=== PATIENT | male | born 1975 | race Caucasian/White ===

== ENCOUNTER 2020-08-18 14:47 | Outpatient (CLI) | payer BC, SELFPAY | END 2020-08-18 14:48 | disposition home or self-care (01) | LOC: ANHCOVIDVC 14:47 | PROVIDERS: PCP Family Medicine | DX: Z23 Encounter for immunization (principal) | CPT/HCPCS: 0001A; 91300 ==

== ENCOUNTER 2020-09-08 14:47 | Outpatient (CLI) | payer BC, SELFPAY | END 2020-09-08 14:48 | disposition home or self-care (01) | LOC: ANHCOVIDVC 14:47 | PROVIDERS: PCP Family Medicine | DX: Z23 Encounter for immunization (principal) | CPT/HCPCS: 0002A; 91300 ==

== ENCOUNTER 2020-09-27 15:13 | Emergency (ER) | payer BC, SELFPAY ==
--- NOTE | ~2020-09-27 | CT_ITS ---
EXAMINATION: CT abdomen pelvis wo con DATE: 09/27/2020 16:01 INDICATION: Right flank pain TECHNIQUE: Computed tomography (CT) of the abdomen and pelvis was performed without intravenous contr ast. The dose-length product (DLP) was 601.41 mGy-cm. Automated exposure control and iterative recons truction technique were employed. COMPARISON: None FINDINGS: Minimal dependent atelectasis is present in the lung bases. The heart size is normal. There is a small sliding hiatal hernia. There is focal fatty infiltration of the liver adjacent to the lig amentum teres. The spleen, pancreas, gallbladder, and adrenal glands are normal. There is a 3 mm ston e at the right ureterovesicular junction which causes moderate right hydroureteronephrosis. There are nonobstructing stones of the left kidney measuring up to 3 mm. No pathologically enlarged abdominal or pelvic lymph nodes are identified. There is no free intraperitoneal gas or evidence of bowel obstr uction. There is a fat-containing umbilical hernia. S-shaped curvature of the thoracolumbar spine is noted. IMPRESSION: 1. 3 mm stone at the right ureterovesicular junction causing moderate right hydroureteronephrosis. Co nsider KUB for treatment planning purposes. 2. Nonobstructing left nephrolithiasis. Reviewed, dictated and finalized at location B. IMPRESSION: 1. 3 mm stone at the right ureterovesicular junction causing moderate right hyd roureteronephrosis. Consider KUB for treatment planning purposes. 2. Nonobstructing left nephrolithiasis.
--- NOTE | ~2020-09-27 | XR_ITS ---
EXAMINATION: XR abdomen/kub 1V INDICATION: Right flank pain, ureterolithiasis TECHNIQUE: Supine views of the abdomen were obtained on 2 radiographs. COMPARISON: CT from today FINDINGS: The known right ureterovesicular junction stone is not well demonstrated. The bowel gas pat tern is normal. There is mild osteoarthritis of the hips. IMPRESSION: 1. Known right ureterovesicular junction stone not definitely identified. Reviewed, dictated and finalized at location B.
[2020-09-27 15:20] VITALS: BP 160/112; RESP 18; TEMP 36.8; O2SAT 100
[2020-09-27 15:36] LABS: Basophils Percent Auto 0.1 % (0.2-1.2); Eosinophils Absolute Auto 0.3 K/mm3 (0-0.3); Eosinophils Percent Auto 3.1 % (0-4.4); Hematocrit 49.3 % (42.0-52.0); Hemoglobin 16.7 g/dL (14.0-18.0); Immature Granulocyte Absolute 0.04 K/mm3 (0.00-0.031); Immature Granulocyte Percent A 0.4 % (0-0.5); Lymphocytes Absolute Auto 2.85 K/mm3 (0.9-3.2); Lymphocytes Percent Auto 26.4 % (18.3-44.2); Mean Corpuscular HGB Conc 33.9 g/dl (32-36); Mean Corpuscular Hemoglobin 28.4 pg (26-34); Mean Corpuscular Volume 83.8 fl (80-100); Mean Platelet Volume 10.9 fl (7.4-10.4); Monocytes Absolute Auto 0.9 K/mm3 (0.1-0.6); Neutrophils Absolute Auto 6.7 K/mm3 (1.3-6.7); Platelet Count Result 327 k/mm3 (150-375); Red Blood Count 5.88 M/mm3 (4.6-6.20); Red Cell Distribution Width 12.6 % (11.5-14.5); White Blood Count 10.8 K/mm3 (4.5-10.0)
[2020-09-27 15:43] LABS: Add Urine Microscopic? YES; Appearance Urine Cloudy (Clear); Bacteria Urine Trace /hpf; Bilirubin Urine Negative (Negative); Blood Urine 3+ (Negative); Color Urine Yellow (Yellow); Glucose Urine UA Negative (Negative); Ketones Urine Negative (Negative); Leukocyte Esterase Ur Negative LEU/UL (Negative); Mucus Urine Rare /lpf; Nitrate Urine Negative (Negative); Protein Urine 2+ mg/dL (Negative); RBC Urine >75 /hpf (0-2); Specific Grav Ur 1.018 (1.001-1.035); Urobilinogen Urine Negative mg/dL (<2.0); WBC Urine 0-3 /hpf
[2020-09-27 15:46] LABS: Anion Gap 7 mmol/L (8-16); Blood Urea Nitrogen 13 mg/dL (9-20); Calcium 9.1 mg/dL (8.4-10.2); Carbon Dioxide 31 mmol/L (22-30); Chloride 101 mmol/L (98-107); Estimated CRCL calculation 74 ml/min; Estimated Glomerular Filt Rate > 60; Glucose 123 mg/dL (75-110); Potassium 3.5 mmol/L (3.4-5.0); Sodium 139 mmol/L (137-145)
--- NOTE | 2020-09-27 16:11 | ED.GENADULT ---
HPI - General Adult General Chief complaint: Back Pain/Injury Stated complaint: right flank pain Time Seen by Provider: 09/27/20 16:04 History of Present Illness HPI narrative: Patient is a 45-year-old male who presents ER with sudden onset right-sided flank pain. No radiation. Feels like he has to urinate constantly but cannot go. Associate with nausea and vomiting as well as some sweats. Has not had a kidney stone before. No hematuria or dysuria. No known injury to the back. Pain is not aggravated by movement. He is found no alleviating factors. Related Data Allergies Allergy/AdvReac Type Severity Reaction Status Date / Time aspirin Allergy Unknown Skin Verified 09/27/20 16:26 Reaction Penicillins Allergy Unknown Skin Verified 09/27/20 16:26 Reaction shellfish derived Allergy Unknown Hives Verified 09/27/20 16:26 shrimp Allergy Unknown Skin Verified 09/27/20 16:26 Reaction Review of Systems Review of Systems: All systems reviewed & are unremarkable except as noted in HPI and below Constitutional: Constitutional: Denies chills, Denies fever(s) and Denies weakness Gastrointestinal: Gastrointestinal: Denies abdominal pain, Denies diarrhea, Reports nausea and Reports vomiting Genitourinary: Genitourinary: Denies hematuria, Denies dysuria, Reports urinary frequency and Denies urinary incontinence Musculoskeletal: Musculoskeletal: Reports back pain and Denies muscle cramps PMFSH Past Medical History Medical History (Updated 09/27/20 @ 17:31 by Jackson Javed MD) Asthma GERD (gastroesophageal reflux disease) Surgical History Surgical History (Updated 09/27/20 @ 17:31 by Jackson Javed MD) H/O vasectomy Social History Social History Smoking status: Current every day smoker Second hand tobacco smoke exposure: No Alcohol intake: current Gender identity (if verbalized by the patient): Male Exam Narrative: Exam Narrative: GENERAL: Uncomfortable-appearing, well-nourished, and in mild distress. HEAD: Normocephalic, atraumatic. ENT: Mucous membranes moist. CHEST: Clear to auscultation. No respiratory distress. HEART: Regular rate and rhythm. Normal peripheral pulses. ABDOMEN: Soft, nontender, nondistended. Back: No CVA tenderness. No midline tenderness of the thoracic or lumbar spine. No reproducible paraspinal muscular tenderness. EXTREMITIES: Normal range of motion. No edema. NEURO: Alert and oriented x3. PSYCH: Normal mood and affect. Course Course Emergency Course: Discussed diagnosis and treatment plan. Patient verbalized understanding. Feeling improved with Toradol but will give additional pain medication prior to discharge. Vital Signs Vital signs: Vital Signs Temperature 98.2 F 09/27/20 15:20 Respiratory Rate 18 09/27/20 15:20 Blood Pressure 160/112 H 09/27/20 15:20 Pulse Oximetry 100 09/27/20 15:20 Temperature 98 F 09/27/20 16:20 Pulse Rate 58 L 09/27/20 16:20 Respiratory Rate 26 H 09/27/20 16:20 Blood Pressure 142/78 H 09/27/20 16:20 Pulse Oximetry 100 09/27/20 16:20 Medical Decision Making Vital Signs Vital Signs: Vital Signs Temperature 98.2 F 09/27/20 15:20 Respiratory Rate 18 09/27/20 15:20 Blood Pressure 160/112 H 09/27/20 15:20 Pulse Oximetry 100 09/27/20 15:20 Temperature 98 F 09/27/20 16:20 Pulse Rate 58 L 09/27/20 16:20 Respiratory Rate 26 H 09/27/20 16:20 Blood Pressure 142/78 H 09/27/20 16:20 Pulse Oximetry 100 09/27/20 16:20 Lab Data Result diagrams: 09/27/20 15:25 09/27/20 15:25 Labs: Lab Results 09/27/20 09/27/20 09/27/20 Range/Units 15:25 15:25 15:25 WBC 10.8 H (4.5-10.0) K/mm3 RBC 5.88 (4.6-6.20) M/mm3 Hgb 16.7 (14.0-18.0) g/dL Hct 49.3 (42.0-52.0) % MCV 83.8 (80-100) fl MCH 28.4 (26-34) pg MCHC 33.9 (32-36) g/dl RDW 12.6 (11.5-14.5) % Plt Count 327 (150-375) k/mm3 MPV 10.9 H (7.4-
[2020-09-27 16:20] VITALS: BP 142/78; PULSE 58; RESP 26; TEMP 36.6; O2SAT 100
[2020-09-27] MEDS: SODIUM CHLORIDE 0.9% IV 1,000 ML 999 ML IV CONT (16:25)
[2020-09-27] MEDS: KETOROLAC 30 MG/ML VIAL (*BKC) IV PUSH (16:28)
[2020-09-27] MEDS: ONDANSETRON INJ 4 MG/2 ML VIAL IV PUSH (16:30)
[2020-09-27] MEDS: MORPHINE SULFATE (*CRX) 4 MG/ML INJ IV PUSH (17:35)
== END 2020-09-27 18:41 | disposition home or self-care (01) ==
PROVIDERS: Emergency Provider Emergency Medicine; PCP Family Medicine
DX: N13.2 Hydronephrosis with renal and ureteral calculous obstruction (principal); J45.909 Unspecified asthma, uncomplicated; K21.9 Gastro-esophageal reflux disease without esophagitis; F17.210 Nicotine dependence, cigarettes, uncomplicated
CPT/HCPCS: 36415; 74018; 74176; 80048; 81001; 85025; 96361; 96374; 96375; 99284; J1885; J2270; J2405; J7030

== ENCOUNTER 2022-10-09 08:18 | Outpatient (CLI) | payer BC, SELFPAY ==
[2022-10-09 20:15] LABS: Alanine Aminotransferase 52 U/L (6-50); Albumin Level 4.5 g/dL (3.5-5.1); Alkaline Phosphatase 47 U/L (38-126); Anion Gap 5 mmol/L (8-16); Aspartate Amino Transferase 36 U/L (17-59); Bilirubin,Total 1.1 mg/dL (0.2-1.3); Blood Urea Nitrogen 11 mg/dL (9-20); Calcium 9.2 mg/dL (8.4-10.2); Carbon Dioxide 34 mmol/L (22-30); Chloride 99 mmol/L (98-107); Cholesterol 183 mg/dL (0-200); Estimated Glomerular Filt Rate > 60; Glucose 107 mg/dL (65-110); HDL Direct 31 mg/dL; Potassium 4.3 mmol/L (3.4-5.0); Sodium 138 mmol/L (137-145); Triglycerides 149 mg/dL (<150)
[2022-10-09 20:29] LABS: LDL Cholesterol Direct 113 mg/dL
[2022-10-09 21:11] LABS: Hemoglobin A1C 5.5 % (<5.7)
== END 2022-10-09 08:19 | disposition home or self-care (01) ==
LOC: ANHGOSHLAB 08:21
PROVIDERS: PCP Family Medicine; Visit Provider Family Medicine
DX: R73.01 Impaired fasting glucose (principal); I10 Essential (primary) hypertension; Z13.220 Encounter for screening for lipoid disorders
CPT/HCPCS: 36415; 80053; 80061; 83036

== ENCOUNTER 2023-09-24 08:19 | Outpatient (CLI) | payer BC, SELFPAY ==
[2023-09-24 20:02] LABS: Alanine Aminotransferase 29 U/L (6-50); Albumin Level 4.7 g/dL (3.5-5.1); Alkaline Phosphatase 56 U/L (38-126); Anion Gap 10 mmol/L (4-12); Aspartate Amino Transferase 39 U/L (17-59); Bilirubin,Total 0.8 mg/dL (0.2-1.3); Blood Urea Nitrogen 12 mg/dL (9-20); Calcium 9.4 mg/dL (8.4-10.2); Carbon Dioxide 25 mmol/L (22-30); Chloride 105 mmol/L (98-107); Cholesterol 172 mg/dL (0-200); Estimated Glomerular Filt Rate > 60; Glucose 99 mg/dL (65-110); HDL Direct 42 mg/dL; Potassium 3.5 mmol/L (3.4-5.0); Sodium 140 mmol/L (137-145); Triglycerides 106 mg/dL (<150)
[2023-09-24 20:13] LABS: LDL Cholesterol Direct 106 mg/dL
== END 2023-09-24 08:20 | disposition home or self-care (01) ==
LOC: ANHGOSHLAB 08:21
PROVIDERS: PCP Family Medicine; Visit Provider Family Medicine
DX: Z13.220 Encounter for screening for lipoid disorders (principal); Z13.228 Encounter for screening for other metabolic disorders
CPT/HCPCS: 36415; 80053; 80061

== ENCOUNTER 2024-08-19 08:15 | Outpatient (CLI) | payer BC, SELFPAY ==
--- OUTSIDE RECORDS SUMMARY | 2024-08-19 08:25 | XMS_ITS | Clinical Summary ---
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 Gender Identity Not on file Sexual Orientation Not on file Plan of Treatment Health Maintenance Due Date Last Done Comments Hepatitis C Virus (HCV) Screening 1975 TdaP Immunization 1975 Hepatitis B Immunization (1 of 3 - 19+ 3-dose series) 1994 Colonoscopy 2020 Colorectal Cancer Screening 2020 Influenza Immunization (#1) 2024 092 10/2019, 03/17/2018 SARS-COV-2 Immunization ( season) 2024 05/31/2021, 09/08/2020, 08/18/2020 Respiratory Syncytial Virus (RSV) Immunization (Adult) (1 - 1-dose 75+ series) 2050 DTaP/Tdap/Td Immunization Discontinued 12/13/2020 Meningococcal Immunization (ACWY) Aged Out No longer eligible based on patient's age to complete this topic Pneumococcal Immunization Combined Aged Out No longer eligible based on patient's age to complete this topic Rotavirus Immunization Aged Out No lo nger eligible based on patient's age to complete this topic
[2024-08-19 13:00] LABS: Basophils Percent Auto 0.1 % (0.2-1.2); Eosinophils Absolute Auto 0.2 K/mm3 (0-0.3); Eosinophils Percent Auto 3.2 % (0-4.4); Hematocrit 49.3 % (42.0-52.0); Hemoglobin 16.3 g/dL (14.0-18.0); Immature Granulocyte Absolute 0.03 K/mm3 (0.00-0.031); Immature Granulocyte Percent A 0.4 % (0-0.5); Lymphocytes Absolute Auto 1.76 K/mm3 (0.9-3.2); Lymphocytes Percent Auto 23.2 % (18.3-44.2); Mean Corpuscular HGB Conc 33.1 g/dl (32-36); Mean Corpuscular Hemoglobin 29.2 pg (26-34); Mean Corpuscular Volume 88.4 fl (80-100); Mean Platelet Volume 11.7 fl (7.4-10.4); Monocytes Absolute Auto 0.6 K/mm3 (0.1-0.6); Monocytes Percent Auto 8.2 % (2.6-8.5); Neutrophils Absolute Auto 4.9 K/mm3 (1.3-6.7); Neutrophils Percent Auto 64.9 % (45.5-73.1); Platelet Count Result 246 k/mm3 (150-375); Red Blood Count 5.58 M/mm3 (4.6-6.20); Red Cell Distribution Width 13.2 % (11.5-14.5); White Blood Count 7.6 K/mm3 (4.5-10.0)
[2024-08-19 13:07] LABS: Alanine Aminotransferase 32 U/L (6-50); Albumin Level 4.3 g/dL (3.5-5.1); Alkaline Phosphatase 51 U/L (38-126); Anion Gap 7 mmol/L (4-12); Aspartate Amino Transferase 53 U/L (17-59); Bilirubin,Total 0.7 mg/dL (0.2-1.3); Blood Urea Nitrogen 18 mg/dL (9-20); Carbon Dioxide 31 mmol/L (22-30); Chloride 101 mmol/L (98-107); Cholesterol 164 mg/dL (0-200); Estimated Glomerular Filt Rate > 60; Glucose 94 mg/dL (65-110); HDL Direct 37 mg/dL; Potassium 4.2 mmol/L (3.4-5.0); Sodium 139 mmol/L (137-145); Triglycerides 87 mg/dL (<150)
[2024-08-19 13:23] LABS: LDL Cholesterol Direct 92 mg/dL
== END 2024-08-19 08:16 | disposition home or self-care (01) ==
LOC: ANHGOSHLAB 08:16
PROVIDERS: PCP Nurse Practitioner; Visit Provider Nurse Practitioner
DX: Z13.29 Encounter for screening for other suspected endocrine disorder (principal); Z13.220 Encounter for screening for lipoid disorders
CPT/HCPCS: 36415; 80053; 80061; 85025